=== PATIENT | male | born 1995 | race Caucasian/White ===

== ENCOUNTER → 2020-12-16 08:13 | Outpatient (CLI) | payer MEDICAID, SELFPAY ==
--- NOTE | 2020-12-16 08:15 | MRI_ITS ---
STUDY: MRI LUMBAR SPINE WITHOUT CONTRAST REASON FOR EXAM: Male, 25 years old. pain TECHNIQUE: Standardized fat and water weighted pulse sequences were obtained in the sagittal and axial planes. COMPARISON: X-ray 11/28/2020 FINDINGS: T12-L1: Normal endplates. Normal disc height, hydration and morphology. Normal bilateral facet joints. Normal central canal and bilateral lateral recesses. Normal bilateral intervertebral neural foramina. Normal lumbar lordosis. There is no substantial scoliosis. Normal conus medullaris that terminates at the T12/L1. L1-2: Normal endplates. Normal disc height, hydration and morphology. Normal bilateral facet joints. Normal central canal and bilateral lateral recesses. Normal bilateral intervertebral neural foramina. L2-3: Normal endplates. Normal disc height, hydration and morphology. Normal bilateral facet joints. Normal central canal and bilateral lateral recesses. Normal bilateral intervertebral neural foramina. L3-4: Normal endplates. Normal disc height, hydration and morphology. Normal bilateral facet joints. Normal central canal and bilateral lateral recesses. Normal bilateral intervertebral neural foramina. L4-5: Normal endplates. Normal disc height, hydration and morphology. Normal bilateral facet joints. Normal central canal and bilateral lateral recesses. Normal bilateral intervertebral neural foramina. L5-S1: Normal endplates. Normal disc height, hydration and morphology. Normal bilateral facet joints. Normal central canal and bilateral lateral recesses. Normal bilateral intervertebral neural foramina. Normal visualized sacral ala. Normal visualized paraspinous soft tissue structures. MRI/Spine Lumbar (Routine) IMPRESSION: Normal unenhanced MR examination of the lumbar spine. Electronically Signed: Tay Aguirre MD at 17:15 EDT Tel , Service support ,
== END ==
PROVIDERS: PCP Family Medicine; Referring Provider Orthopaedic Surgery; Visit Provider Orthopaedic Surgery
DX: M51.26 Other intervertebral disc displacement, lumbar region (principal)
CPT/HCPCS: 72148

== ENCOUNTER 2021-01-15 10:30 | Outpatient (RCR) | payer MEDICAID, SELFPAY ==
--- NOTE | 2021-01-01 11:49 | HP.PTEVAL ---
Patient's Visit Information VIN CRUM is a 25 year old M referred to Physical Therapy by Dr. Dmitriy Mendez DO with a diagnosis of Chronic lumbrosacral sprain. Date of Evaluation: 01/01/21 Physical Therapist: Reynaldo Pugh - Visit Plan Frequency: 1-2x /Week Duration: 6 Weeks Plan: Focus on dynamic LE flexibility, core and back strengthening, and educating pt. on proper lifting mechanics. Use manual therapy and modalities as needed for pain control. - Subjective Pt. is a 25 y.o. male who has been having low back pain for about six months with no specific injury that he is aware of. He played college baseball and noticed the pain when he was weight lifting. He continued to weight lift but noticed over time that it got worse especially with squatting and deadlifting. Pt. PLOF includes no history of back pain in the past before this. Pt. has had recent x-ray and MRI of his lumbar spine which was unremarkable. He denies any radicular symptoms in his legs. Pt. denies any change in his bowel or bladder function or unexplained weight loss. Pt. has difficulty with sitting longer than 30-45 minutes, driving long distances, lifting things, pushing/pulling, and working out. Pt. is currently at the [employer] and is majoring in Exercise Science. His goal with physical therapy is to get back to weight lifting with no pain. Pt. denies any pain currently, at worst 8/10 and describes the pain as dull, achy, and sharp. He does not take any pain medication. Pt. PMH includes history of right shoulder labrum surgery. Pt. lives with his parents and his girlfriend. His hobbies include working out, reading books, and hanging out with friends. - Objective Posture- Good posture in standing; decreased lordotic curve of lumbar spine. Palpation- Mild tenderness over proximal sacrum. Lumbar AROM- flexion WNL and no pain; extension min restriction and mild low back pain; SB to left WNL and no pain; SB to right WNL and mild low back pain; lumbar rotations WNL and no pain. Hip PROM- WNL bilaterally. Pelvis and leg length normal in supine. Left LE strength- Grossly 5/5 for all motions. Right LE strength- Grossly 5/5 for all motions. Core strength- 4+/5. Special tests- Wells leg raise [-], Straight leg raise [-], ANATOLIY's [-], Sacral compression [-], Sacral distraction [-], Sacral thrust [+], Silverio test [+ for quad tightness] - Balance/Special Test Scores Oswestry Low Back Score: 8 - Goals Goal 1:: Pt. will be able to sit for at least 1 hour with pain < 3/10. Goal Time Frame: 4-6 Weeks Goal 2:: Pt. will improve core strength to 5/5 in order to decrease back pain. Goal Time Frame: 4-6 Weeks Goal 3:: Pt. will be able to demonstrate proper lifting mechanics with no back pain. Goal Time Frame: 4-6 Weeks Goal 4:: Pt. will be able to return to working out with back pain < 3/10. Goal Time Frame: 4-6 Weeks - Rehabilitation Potential Physical Therapy Diagnosis: Decreased core/back strength, LE flexibility, and pain Rehabilitation Potential: Good - Anticipated Interventions Patient/Client Instruction: Educate patient on: Condition, Risk Factors, Benefits of Fitness Program For the Purpose of:: To decrease pain, To decrease swelling/inflammation, To increase ROM, To improve ability to perform ADL's, To improve performance and independence with ADL's, To improve ability of physical actions for home/community/work/leisure, To increase flexibility/ROM, To assume or resume ADL's, To prevent re-injury, To improve tolerance to ADL's Therapeutic Exercise to Include: Strength training, Power training, Endurance training, Body mechanics, Postural training, Flexibilty training, Active ROM, Dynamic Lumbar Stabilization Comment: Focus on LE flexibility, core, and back strengthening. For the Purpose of:: To decrease pain, To decrease swelling/inflammation, To increase ROM, To improve performance and independence with ADL's, To improve ability of physical actions for home/community/work/leisure, To increase flexibility/ROM, To assume or resume ADL's, To improve tolerance to ADL's Functional Training to Include: ADL Training, Functional sports training For the Purpose of:: To decrease pain, To decrease swelling/inflammation, To increase ROM, To improve ability to perform ADL's, To improve performance and independence with ADL's, To improve ability of physical actions for home/community/work/leisure, To assume or resume ADL's, To improve tolerance to ADL's Manual Therapy Techniques to Include: Mobilization, Soft tissue mobilization For the Purpose of:: To decrease pain, To decrease swelling/inflammation, To increase ROM, To improve performance and independence with ADL's, To increase flexibility/ROM, To improve tolerance to ADL's TENS: Yes IF ES: Yes Cryotherapy (ice pack, ice massage): Yes Thermo therapy (hot pack): Yes For the Purpose of:: To decrease pain, To decrease swelling/inflammation, To increase ROM, To improve ability to perform ADL's, To improve performance and independence with ADL's, To improve ability of physical actions for home/community/work/leisure, To increase flexibility/ROM, To improve tolerance to ADL's Thank you for the opportunity to evaluate your patient. For Medicare and Medicare HMO plans, please review the plan of care and approve it. It will need to be FAXED BACK to us at [phone] for Medicare purposes. For Medicare only, by signing this I certify the plan of care. Please let me know if there are questions or concerns regarding this plan of care. Physician Signature: Date:
--- NOTE | 2021-06-24 10:14 | HP.PTDCSUM ---
It has been my pleasure to treat VIN CRUM referred by Dr. Dmitriy Mendez DO, with the diagnosis of Chronic lumbrosacral sprain for a total of 3 visit(s). Discharge Date: Please see the following information for a summary of their discharge status. Subjective: Pt. states that he is doing really well. He has returned back to working out doing light aerobic and lifting exercises and this is going well. He is also doing some yoga and that has helped also. Pt. denies any pain and feels good with continuing his exercises at home. Objective/Function: Pt. did well with therapy today. Educated pt. on proper lifting mechanics which he did well with. Reviewed pt. goals for therapy and he has met all of his goals for therapy. Discussed with pt. about return to workout plan. Will keep his chart open for a month otherwise he has been discharged from physical therapy at this time. Goal 1:: Pt. will be able to sit for at least 1 hour with pain < 3/10. Goal Progress: Goal Met Goal 2:: Pt. will improve core strength to 5/5 in order to decrease back pain. Goal Progress: Goal Met Goal 3:: Pt. will be able to demonstrate proper lifting mechanics with no back pain. Goal Progress: Goal Met Goal 4:: Pt. will be able to return to working out with back pain < 3/10. Goal Progress: Goal Met Plan: Pt. to continue with his current HEP and workout plan. Will keep chart open for a few weeks at this time otherwise he has been discharged from physical therapy. If there are questions or concerns regarding this patient's physical therapy, please feel free to call me at [phone]. Thank you for the referral of this patient. Sincerely, Girma Mansfield, DPT, OCS, CSCS Balance/Gait/Functional tests - Balance/Special Test Scores Oswestry Low Back Score: 8
== END 2021-01-15 19:00 | disposition home or self-care (01) ==
LOC: PT 10:30
PROVIDERS: PCP Family Medicine; Referring Provider Orthopaedic Surgery; Visit Provider Orthopaedic Surgery
DX: S33.5XXD Sprain of ligaments of lumbar spine, subsequent encounter (principal); X58.XXXD Exposure to other specified factors, subsequent encounter
CPT/HCPCS: 97110; 97161